=== PATIENT | male | born 1985 | race Caucasian/White ===

== ENCOUNTER 2023-05-12 08:17 | Outpatient (AMB) | payer BC, SELFPAY ==
[2023-05-12 08:48] VITALS: BP 132/80; PULSE 94; TEMP 38.2; O2SAT 98; BMI 29.0
--- NOTE | 2023-05-12 08:48 | AM.OFFWIN_ITS ---
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 He reports that he started with body aches for about 1 week, followed by a GI virus which caused diarrhea for 4 days. These have since resolved, however he awoke today with very sore throat. Denies known exposure to sick contacts. [facility], [facility] Social History Patient Tobacco Use Status: Current everyday Tobacco user Review of Systems Const All systems reviewed & are unremarkable except as noted in HPI and below Physical Exam Const General: cooperative and no acute distress HEENT Head: Yes normal to inspection Ears: hearing grossly normal bilaterally General nose exam: Normal external nose present and Normal nasal mucous membranes and turbinates present Mouth: Normal oral and palatal mucosa present Throat: Yes posterior oropharynx abnormal (erythematous, exudute) and Yes tonsils absent Neck Neck: Yes no lymphadenopathy Resp Effort & Inspection: normal respiratory effort and able to speak in complete sentences Auscultation: clear to auscultation bilaterally Cardio Palpation: normal PMI Rate: regular rate Rhythm: regular rhythm Skin General skin exam: no rashes or lesions noted Extrem General: Yes capillary refill normal and Yes no clubbing, cyanosis or edema Psych Appearance: grossly normal Mental Status: mental status grossly normal Speech and movement: Normal speech and movement present Results AMB Rapid Strep AMB Rapid Strep Positive Last Edit by Danielito Mccormick CMA on 05/12/23 09 :05 Assessment & Plan Assessment & Plan (1) Streptococcal pharyngitis: Code(s): J02.0 - Streptococcal pharyngitis Plan: Rapid strep positive. Will treat with PCN V x10 days. Reviewed indications, use, possible s/e. Advised warm/salt water gargles and otc lozenges and Tylenol prn any ongoing throat discomfort. If he does not improve with treatment he should return to the clinic for further evaluation. He verbalizes understanding and agrees to plan. Work note provided. Orders: Orders AMB Rapid Strep Screen Today Z13.9 - Encounter for screening, unspecified Medications: New penicillin V potassium 500 mg PO TID 30 tabs 0RF 10 days J02.0 - Streptococcal pharyngitis Coding Level of Care Code Est Pt Level 3 (29644) Diagnoses Streptococcal pharyngitis J02.0
== END 2023-05-12 09:20 | disposition home or self-care (01) ==
PROVIDERS: Visit Provider Nurse Practitioner Family
DX: J02.0 Streptococcal pharyngitis (principal); J02.9 Acute pharyngitis, unspecified
CPT/HCPCS: 87880; 99213

== ENCOUNTER 2023-06-04 09:02 | Outpatient (AMB) | payer BC, SELFPAY ==
[2023-06-04 09:02] VITALS: BP 130/80; PULSE 80; TEMP 36.1; O2SAT 97; BMI 28.0
--- NOTE | 2023-06-04 09:02 | AM.OFFWIN_ITS ---
Intake Vital Signs 06/04/23 09:02 Height 5 ft 10 in Weight 88.451 kg BMI 28.0 BP 130/80 Blood Pressure Location Lt brachial Position Sitting Pulse 80 Pulse Source Pulse Oximeter Temp 97.0 F Temp Source Temporal Artery Scan Pulse Oximetry (%) 97 Oxygen Delivery Method Room Air Intake Visit Reasons: EP Fever, Chills [phone] Intake Note: pt is here today for fever chills started 05/03 Patient Tobacco Use Status: Current everyday Tobacco user Allergies No Known Allergies Allergy (Verified 06/04/23 09:02) Do you need a note to return to daycare/school/sports/work: Yes HPI HPI Comments History of Present Illness Details 928 38-year-old male not regularly followed by primary care provider history of obesity presenting to the clinic for evaluation of fatigue, malaise, myalgias, chills, diarrhea, subjective fevers ongoing since the end of April. Patient reports at the end of April he had some sort of virus, he got better, few days later he got sick again, he reports this past week he has been having chills, nausea, diarrhea (a few bowel movements per day, loose however not completely watery.) He reports he just has not been feeling right and he feels like everything goes right through him. Has not seen a PCP or specialist for this. Denies chest pain, shortness of breath, headache, vision changes, dizziness. No recent travel not currently on antibiotics Physical examination benign Likely IBS versus viral illness versus gastroenteritis. Unlikely Clostridium difficile, bacterial diarrhea. Will rule out metabolic derangements. Advised him to follow-up with PCP and will likely require Gastroenterology follow-up. Educated patient on diagnosis and treatment plan, answered all question, patient verbalizes understanding. At this time patient will be discharged home, advised to return with new or worsening symptoms. Educated on worrisome signs and symptoms and when to return. At this time I feel comfortable discharge home. [facility] Social History Patient Tobacco Use Status: Current everyday Tobacco user Review of Systems Const All systems reviewed & are unremarkable except as noted in HPI and below Physical Exam Vital Signs: Last Vital Signs Temp 97.0 F 06/04/23 09:02 Pulse 80 06/04/23 09:02 BP 130/80 06/04/23 09:02 Pulse Ox 97 06/04/23 09:02 Oxygen Delivery Method Room Air 06/04/23 09:02 BMI result Body Mass Index 28.0 Vital signs stable Appearance: Alert.? Oriented X3.? No acute distress.? Head: Normocephalic, atraumatic, no step-offs or deformities Eyes: Pupils equal, round and reactive to light.? ENT: Pharynx normal.? Neck: Normal inspection.? Neck supple.? No meningeal signs. CVS: Normal heart rate and rhythm.? Pulses normal.? Respiratory: No respiratory distress.? Breath sounds normal.? Abdomen: Soft and nontender.? Negative Shea's, Rovsing and McBurney's Skin: Skin warm and dry.? Normal skin color.? Normal skin turgor.? Extremities: No lower extremity edema.? No calf ttp. 5/5 strength to bilateral upper and lower extremities Neuro: Oriented X 3.? No motor deficit.? No sensory deficit. CN 2-12 intact Assessment & Plan Assessment & Plan (1) Viral illness: Code(s): B34.9 - Viral infection, unspecified (2) Nausea & vomiting: Code(s): R11.2 - Nausea with vomiting, unspecified (3) Diarrhea: Code(s): R19.7 - Diarrhea, unspecified Plan Take your medications as prescribed. If you were prescribed antibiotics today, it is important that you take your medication to their entirety, do not skip any doses, do not finish them early. Follow-up with your primary care provider this week. Return to the emergency department with new or worsening symptoms. Such as fevers, chills, chest pain, shortness of breath, nausea, vomiting, dizziness, headache, vision changes, lethargy In case of emergency call 911 Orders: Orders Complete Blood Count Auto Diff Today B34.9 - Viral infection, unspecified, R11.2 - Nausea with vomiting, unspecified Comprehensive Met. Panel Today B34.9 - Viral infection, unspecified, R11.2 - Nausea with vomiting, unspecified, R19.7 - Diarrhea, unspecified Lipase Today B34.9 - Viral infection, unspecified, R11.2 - Nausea with vomiting, unspecified, R19.7 - Diarrhea, unspecified Coding Level of Care Code Est Pt Level 3 (25739) Diagnoses Viral illness B34.9 Nausea & vomiting R11.2 Diarrhea R19.7
== END 2023-06-04 09:35 | disposition home or self-care (01) ==
PROVIDERS: Visit Provider Physician Assistant
DX: B34.9 Viral infection, unspecified (principal); R11.2 Nausea with vomiting, unspecified; R19.7 Diarrhea, unspecified
CPT/HCPCS: 99213

== ENCOUNTER 2023-06-04 09:23 | Outpatient (REF) | payer BC, SELFPAY ==
[2023-06-04 11:42] LABS: MANUAL DIFF FLAG NO
[2023-06-04 11:56] LABS: Basophils Percent Auto 0.2 % (0-2); Eosinophils Percent Auto 0.2 % (0-4); Hematocrit 48.4 % (42.0-52.0); Hemoglobin 15.8 g/dl (14.0-18.0); Imm Gran Abs Auto 0.01 X10*3/uL (0.00-0.03); Imm Gran Pct Auto 0.2 % (0.0-0.4); Lymphocytes Absolute Auto 1.1 X10*3/uL (1.2-4.9); Lymphocytes Percent Auto 22.2 % (20-40); Mean Corpuscular HGB Conc 32.6 g/dl (31.0-36.0); Mean Platelet Volume 9.4 fL (9.4-12.4); Monocytes Absolute Auto 0.8 X10*3/uL (0.1-1.2); Monocytes Percent Auto 16.6 % (2-11); Neutrophils Absolute Auto 2.9 x10*3/uL (2.0-8.3); Neutrophils Percent Auto 60.6 % (45-73); Platelet Count 277 X10*3/uL (160-400); Red Blood Count 5.44 X10*6/uL (4.60-5.80); White Blood Count 4.8 X10*3/uL (4.8-10.8)
[2023-06-04 12:30] LABS: Alanine Aminotransferase 28 U/L (0-40); Albumin Level 4.4 g/dL (3.5-5.0); Alkaline Phosphatase 62 U/L (39-117); Anion Gap 16 (12-20); Aspartate Amino Transferase 24 U/L (5-37); Bilirubin Total 0.4 mg/dL (0.0-1.0); Blood Urea Nitrogen 8 mg/dL (9-16); Calcium 9.4 mg/dL (8.4-10.2); Carbon Dioxide 29 mmol/L (22-29); Chloride 98 mmol/L (96-108); Estimated Glomerular Filt Rate > 60; Glucose Random 87 mg/dL (60-115); Lipase 20 U/L (8-78); Potassium 4.1 mmol/L (3.3-5.1); Sodium 139 mmol/L (135-145); Total Protein 7.5 g/dL (6.5-8.0)
== END 2023-06-04 09:24 | disposition home or self-care (01) ==
LOC: HO.HMGCLDS 09:23
PROVIDERS: Visit Provider Physician Assistant
DX: B34.9 Viral infection, unspecified (principal); R19.7 Diarrhea, unspecified; R11.2 Nausea with vomiting, unspecified
CPT/HCPCS: 36415; 80053; 83690; 85025

== ENCOUNTER 2023-07-05 10:52 | Outpatient (AMB) | payer BC, SELFPAY ==
[2023-07-05 10:58] VITALS: BP 122/74; PULSE 62; O2SAT 98; BMI 28.6
--- NOTE | 2023-07-05 10:58 | MHC.PC.OV ---
Vital Signs 07/05/23 10:58 Height 5 ft 10 in Weight 199 lb BMI 28.6 BP 122/74 Blood Pressure Location Lt brachial Position Sitting Pulse 62 Pulse Source Pulse Oximeter Pulse Oximetry (%) 98 Oxygen Delivery Method Room Air Intake Visit Reasons: Annual PE Intake Note: Pt is here to est care Allergies No Known Allergies Allergy (Verified 07/05/23 11:14) Medication List - Last Reconciled 07/05/23 by ROLAN Stauffer prednisone 2 mg PO DAILY Tobacco use date assessed: 07/05/23 Dental Screening Dental Screen Date: 07/05/23 Did you have a dental visit in the last 12 months?: Yes Did you have a dental problem in the last 6 months where you did not have access to dental care?: No Was dental information given to patient?: Patient has dentist HPI HPI Comments History of Present Illness Details The patient is a 38-year-old male here to establish care. He was seen in the walk-in clinic 1 month prior with GI symptoms of diarrhea, bloating, stomach pain. He has not seen a PCP in several years. Patient states that his GI symptoms have diminished. He states he is currently on a prednisone taper due to his left back more being pulled 2 days prior to this appointment. Denies recent fever, nausea, vomiting, chest pain, shortness a breath, or numbness. [facility] Medical History (Updated 07/05/23 @ 11:37 by ROLAN Stauffer) Horseshoe kidney Surgical History (Updated 07/05/23 @ 11:17 by ROLAN Stauffer) History of tonsillectomy Family History Father Substance use disorder Social History Housing: House Patient Tobacco Use Status: Former Tobacco user e-Cigarette/Vaping Use: Currently Using Second Hand Smoke Exposure: No service: No Current occupational status: employed Current occupation: [employer] Current occupational exposures/hazards: No Cognitive needs: No Hearing needs: No Vision needs: No Questionnaire PHQ-9 Over the last 2 weeks, how often have you been bothered by any of the following problems? 1. Little interest or pleasure in doing things: not at all 2. Feeling down, depressed, or hopeless: not at all 3. Trouble falling or staying asleep, or sleeping too much: not at all 4. Feeling tired or having little energy: more than half the days 5. Poor appetite or overeating: not at all 6. Feeling bad about yourself - or that you are a failure or have let yourself or your family down: not at all 7. Trouble concentrating on things, such as reading the newspaper or watching television: not at all 8. Moving or speaking so slowly that other people could have noticed. Or the opposite - being so fidgety or restless that you have been moving around a lot more than usual: not at all 9. Thoughts that you would be better off or of hurting yourself in some way: not at all Total score: 2 Depression Screening Interpretation: Negative Depression Screening Done: Yes 12040 - PHQ-9 Billing: Yes Source: Developed by Drs. Jay Perdue, Maryuri Patrick, Alvarez Arita and colleagues, with an educational dorota from [employer]. Thrive Questionnaire Date Thrive assessed: 07/05/23 I am a: Patient What is your living situation today?: I have a steady place to live Within the past 12 months, did the food you bought not last and you didn't have the money to get more?: Never true Within the past 12 months, did you worry whether your food would run out before you got money to buy more?: Never true Do you have trouble paying for medicines?: No Do you have trouble getting transportation to medical appointments?: No Do you have trouble paying your heating and electricity bill?: No Do you have trouble taking care of your child, family member or friend?: No Do you have trouble with day-to-day activities such as bathing, preparing meals, shopping, managing finances, etc.?: No Are you currently unemployed and looking for a job?: No Are you interested in more education?: No THRIVE Score: 0 AUDIT C Alcohol Use Questionnaire (AUDIT-C) 1. How often do you have a drink containing alcohol?: Monthly or less 2. How many drinks containing alcohol do you have on a typical day when you are drinking?: 1 or 2 3. How often do you have six or more drinks on one occasion?: Never Total Score: 1 ELIECER-7 AMB Questionnaire ELIECER-7 Date ELIECER - 7 assessed: 07/05/23 Feeling nervous, anxious, or on edge: 0 = Not at all Not being able to stop or control worryin = Not at all Worrying too much about different things: 0 = Not at all Trouble relaxin = Not at all Being so restless that it is hard to sit still: 0 = Not at all Becoming easily annoyed or irritable: 1 = Several days Feeling afraid as if something awful might happen: 0 = Not at all Total ELIECER-7 score (0-4 normal; 5-9 mild; 10-14 moderate; 15-21 severe): 1 Source: Developed by Drs. Jay Perdue, Maryuri Patrick, Alvarez Arita and colleagues, with an educational dorota from [employer]. ELIEECR-7 Assessment Billing ELIECER-7 Assessment Tool: ELIECER-7 Assessment 40965 Review of Systems Const Details: Constitutional : No Weight loss, No Fever, No Chills, No Fatigue, No Malaise ENT/Mouth : No sore throat, No Rhinorrhea, Admits ear fullness. Eyes: No Eye Pain, No Swelling, No Redness Cardiovascular : No Chest Pain, No SOB, No Dyspnea on Exertion, No Orthopnea, No Edema, No Palpitations Respiratory : No Cough, No Sputum, No Wheezing Gastrointestinal : No Nausea, No Vomiting, No Diarrhea, No Constipation, No abdominal Pain, No Hematochezia, No Melena Musculoskeletal : Admits limited flexion and extension of left thumb. Skin : No Skin Lesions, No rash Neuro : No Weakness, No Numbness, No Dizziness, No Headache Psych : No Anxiety/Panic, No Depression All other systems reviewed and are negative Physical exam (Primary Care) Vital Signs: Last Vital Signs Pulse 62 07/05/23 10:58 BP 122/74 07/05/23 10:58 Pulse Ox 98 07/05/23 10:58 Oxygen Delivery Method Room Air 07/05/23 10:58 BMI result Body Mass Index 28.6 Tobacco/Smoking Status: Tobacco use Status Tobacco use date assessed 07/05/23 07/05/23 11:03 Patient Tobacco Use Status Former Tobacco user 07/05/23 11:03 e-Cigarette/Vaping Use Currently Using 07/05/23 11:03 Depression Screening Interpretation: Negative Const Other: Appearance: Alert.? Oriented X3.? No acute distress.? Head: Normocephalic, atraumatic, no step-offs or deformities Eyes: Pupils equal, round and reactive to light.? ENT: TM intact, effusion and erythema bilaterally. Neck: Normal inspection.? Neck supple.? CVS: Normal heart rate and rhythm.? Pulses normal.? Respiratory: No respiratory distress.? Breath sounds normal.? Extremities: Patient unable to full extend and flex left thumb. No obvious deformity. Patient denies trauma to the area. Neuro: Oriented X 3.? No motor deficit.? No sensory deficit. CN 2-12 intact Assessment and Plan Assessment & Plan (1) Thumb pain: Comment: Patient states that he has little pain in his left thumb but has limited range of motion to flexion and extension. Denies any trauma to the area, denies recent injury. Will obtain x-ray. Code(s): M79.646 - Pain in unspecified finger(s) Qualifiers: Laterality: left Qualified Code(s): M79.645 - Pain in left finger(s) (2) Otitis media: Comment: Patient has bilateral otitis media. Will prescribe Augmentin to be taken as directed Code(s): H66.90 - Otitis media, unspecified, unspecified ear Qualifiers: Otitis media type: unspecified Chronicity: acute Qualified Code(s): H66.90 - Otitis media, unspecified, unspecified ear Plan: Take your medications as prescribed. If you were prescribed antibiotics today, it is important that you take your medication to their entirety, do not skip any doses, do not finish them early. Follow-up with your primary care provider this week. Return to the emergency department with new or worsening symptoms. Such as fevers, chills, chest pain, shortness of breath, nausea, vomiting, dizziness, headache, vision changes, lethargy In case of emergency call 911 Plan Patient will follow-up with physical exam and 4 months Orders: Orders Comprehensive Met. Panel Today Z91.89 - Other specified personal risk factors, not elsewhere classified Erythrocyte Sedimentation Rate Today R10.9 - Unspecified abdominal pain Vitamin B12 Today Z13.21 - Encounter for screening for nutritional disorder UA CC w/rflx Micro + Cult Today Z13.89 - Encounter for screening for other disorder TSH reflex Free T4 Today Z13.29 - Encounter for screening for other suspected endocrine disorder XR hand wrist LT Today M79.646 - Pain in unspecified finger(s) Complete Blood Count Auto Diff Today Z13.0 - Encounter for screening for diseases of the blood and blood-forming organs and certain disorders involving the immune mechanism Amylase Today R14.0 - Abdominal distension (gaseous) Magnesium Today R10.9 - Unspecified abdominal pain Vitamin D 25-OH (D2 and D3) Today Z13.21 - Encounter for screening for nutritional disorder Vitamin B6 Today Z13.21 - Encounter for screening for nutritional disorder Medications: New amoxicillin-pot clavulanate 875-125 mg 1 tab PO Q12H 14 tabs 0RF Coding Level of Care Code Est Pt Level 3 (39361) Diagnoses Pain of left thumb M79.645 Laterality: left Acute otitis media, unspecified otitis media type H66.90 Otitis media type: unspecified Chronicity: acute Additional Codes ELIECER-7 Assessment Billing - ELIECER-7 Assessment Tool: ELIECER-7 Assessment 55304 ([id number]) Time Spent (min) 25
== END 2023-07-05 12:37 | disposition home or self-care (01) ==
PROVIDERS: Visit Provider Nurse Practitioner Primary Care
DX: M79.645 Pain in left finger(s) (principal); H66.93 Otitis media, unspecified, bilateral
CPT/HCPCS: 99214

== ENCOUNTER 2023-07-05 11:41 | Outpatient (REF) | payer BC, SELFPAY ==
--- NOTE | ~2023-07-05 | XR_ITS ---
EXAMINATION: XR HAND/WRIST, LEFT CLINICAL INFORMATION: Finger pain. COMPARISON: None TECHNIQUE: PA, lateral, and oblique views of the left hand and wrist. FINDINGS: The bones and soft tissues are normal. No fracture. Alignment is anatomic. There is a neutral ulnar variance. Joint spaces are maintained. A benign, simple cyst is incidentally noted of the metacarpal head, with sharp margins. Further tiny benign cysts are seen within the lunate. No erosions or soft tissue calcifications. XR/XR hand wrist LT IMPRESSION: Unremarkable radiographs of the hand and wrist.
[2023-07-05 13:34] LABS: Appearance Urine Clear; Color Urine Yellow; Glucose Urine UA Negative (Negative); Leukocyte Esterase Urine Negative (Negative); Nitrite Urine Negative (Negative); PH 7.5 (5.0-9.0); Specific Gravity - Urine <= 1.005 (1.005-1.025); Urine Blood Negative (Negative); Urine Ketones Negative (Negative); Urine Protein Negative (Neg-Trace)
[2023-07-05 13:35] LABS: MANUAL DIFF FLAG NO
[2023-07-05 13:36] LABS: Basophils Percent Auto 0.2 % (0-2); Eosinophils Percent Auto 0.1 % (0-4); Hematocrit 43.1 % (42.0-52.0); Imm Gran Abs Auto 0.06 X10*3/uL (0.00-0.03); Imm Gran Pct Auto 0.6 % (0.0-0.4); Lymphocytes Absolute Auto 1.3 X10*3/uL (1.2-4.9); Lymphocytes Percent Auto 12.4 % (20-40); Mean Corpuscular HGB Conc 32.5 g/dl (31.0-36.0); Mean Corpuscular Hemoglobin 28.9 pg (27.0-33.0); Mean Platelet Volume 9.1 fL (9.4-12.4); Monocytes Absolute Auto 0.6 X10*3/uL (0.1-1.2); Monocytes Percent Auto 5.8 % (2-11); Neutrophils Absolute Auto 8.4 x10*3/uL (2.0-8.3); Neutrophils Percent Auto 80.9 % (45-73); Platelet Count 287 X10*3/uL (160-400); Red Blood Count 4.84 X10*6/uL (4.60-5.80); Red Cell Distribution Width 13.5 % (11.0-16.0); White Blood Count 10.4 X10*3/uL (4.8-10.8)
[2023-07-05 14:16] LABS: Erythrocyte Sedimentation Rate 4 MM/HR (0-15)
[2023-07-05 14:48] LABS: Alanine Aminotransferase 28 U/L (0-40); Albumin Level 4.3 g/dL (3.5-5.0); Alkaline Phosphatase 63 U/L (39-117); Amylase 47 U/L (28-100); Anion Gap 11 (12-20); Aspartate Amino Transferase 17 U/L (5-37); Bilirubin Total 0.5 mg/dL (0.0-1.0); Blood Urea Nitrogen 8 mg/dL (9-16); Calcium 9.4 mg/dL (8.4-10.2); Carbon Dioxide 31 mmol/L (22-29); Chloride 102 mmol/L (96-108); Estimated Glomerular Filt Rate > 60; Glucose Random 87 mg/dL (60-115); Magnesium 2.1 mg/dL (1.6-2.6); Potassium 3.8 mmol/L (3.3-5.1); Sodium 140 mmol/L (135-145); Total Protein 7.3 g/dL (6.5-8.0)
[2023-07-05 15:03] LABS: TSH reflex Free T4 0.67 uIU/mL (0.32-4.0); Vitamin B12 813 pg/mL (200-900)
[2023-07-09 13:13] LABS: Vitamin D 25-OH, D2 <4 ng/mL; Vitamin D 25-OH, D3 21 ng/mL; Vitamin D 25-OH, Total 21 ng/mL (30-100)
[2023-07-10 14:58] LABS: Vitamin B6 32.2 ng/mL (2.1-21.7)
== END 2023-07-05 11:42 | disposition home or self-care (01) ==
LOC: HO.HMGCX 11:41
PROVIDERS: PCP Nurse Practitioner Primary Care; Visit Provider Nurse Practitioner Primary Care
DX: M79.642 Pain in left hand (principal); R10.9 Unspecified abdominal pain; Z91.89 Other specified personal risk factors, not elsewhere classified; Z13.21 Encounter for screening for nutritional disorder; Z13.0 Encounter for screening for diseases of the blood and blood-forming organs and certain disorders involving the immune mechanism; R14.0 Abdominal distension (gaseous); Z13.29 Encounter for screening for other suspected endocrine disorder; Z13.89 Encounter for screening for other disorder
CPT/HCPCS: 36415; 73110; 73130; 80053; 81003; 82150; 82306; 82607; 83735; 84207; 84443; 85025; 85652

== ENCOUNTER 2024-04-17 11:29 | Outpatient (AMB) | payer BC, SELFPAY ==
[2024-04-17 12:27] VITALS: BP 120/84; PULSE 75; O2SAT 98; BMI 29.3
--- NOTE | 2024-04-17 12:27 | MHC.OFFWIV ---
Intake Vital Signs 04/17/24 12:27 Height 5 ft 10 in Intake Visit Reasons: EP Pain in neck/shoulder [phone] Intake Note: Patient here for neck pain that started about 4 weeks ago. Patient Tobacco Use Status: Former Tobacco user Allergies No Known Allergies Allergy (Verified 04/17/24 12:45) Do you need a note to return to daycare/school/sports/work: Yes PFSH Medical History (Updated 07/05/23 @ 11:37 by ROLAN Stauffer) Horseshoe kidney Surgical History (Updated 07/05/23 @ 11:17 by ROLAN Stauffer) History of tonsillectomy Family History Father Substance use disorder Social History Housing: House Patient Tobacco Use Status: Former Tobacco user e-Cigarette/Vaping Use: Currently Using Second Hand Smoke Exposure: No service: No Current occupational status: employed Current occupation: [employer] Current occupational exposures/hazards: No Cognitive needs: No Hearing needs: No Vision needs: No Coding
--- NOTE | 2024-04-17 13:09 | MHC.OFFWIV ---
Intake Vital Signs 04/17/24 12:27 Height 5 ft 10 in Weight 204 lb BMI 29.3 BP 120/84 Blood Pressure Location Rt brachial Position Sitting Pulse 75 Pulse Source Pulse Oximeter Pulse Oximetry (%) 98 Oxygen Delivery Method Room Air Intake Visit Reasons: EP Pain in neck/shoulder [phone] Patient Tobacco Use Status: Former Tobacco user Allergies No Known Allergies Allergy (Verified 04/17/24 12:45) Do you need a note to return to daycare/school/sports/work: No HPI HPI Comments History of Present Illness Details Patient is a 39-year-old male complaining of acute on chronic left-sided shoulder and neck pain. Patient states he has a history of shoulder pain, had an MRI and was told to go to physical therapy. He states his pain has been fairly under control since then however more recently it has started up again. He tells me the last week or so, he has pain that extends from the base of his skull down to his left shoulder. He tells me he is right-handed and recently had a baby but he assures me he is not carrying the baby on the left side. He tells me he has been trying to find pillows that allow him to sleep in a comfortable position but has been unsuccessful. He tells me he does not like taking medication and has been using some ice and Salonpas patches with no relief in his symptoms. He tells me he has some slight numbness and tingling in his left arm. The pain is not worse with movement. He tells me he had a primary care doctor but that primary care doctor has since left the practice but he has not been assigned new one. [facility] Medical History (Updated 04/17/24 @ 13:32 by Haley Tolbert PA-C) Horseshoe kidney Surgical History (Updated 07/05/23 @ 11:17 by ROLAN Stauffer) History of tonsillectomy Family History Father Substance use disorder Social History Housing: House Patient Tobacco Use Status: Former Tobacco user e-Cigarette/Vaping Use: Currently Using Second Hand Smoke Exposure: No service: No Current occupational status: employed Current occupation: [employer] Current occupational exposures/hazards: No Cognitive needs: No Hearing needs: No Vision needs: No Review of Systems Const All systems reviewed & are unremarkable except as noted in HPI and below Physical Exam Vital Signs: Last Vital Signs Pulse 75 04/17/24 12:27 BP 120/84 04/17/24 12:27 Pulse Ox 98 04/17/24 12:27 Oxygen Delivery Method Room Air 04/17/24 12:27 BMI result Body Mass Index 29.3 Assessment & Plan Assessment & Plan (1) Neck pain on left side: Code(s): M54.2 - Cervicalgia Plan: Recommended around the clock Aleve for the next 2-3 days, also using Voltaren gel, ice and rest. Also sent muscle relaxer to pharmacy. No indication for x-ray Advised to set up an appointment with a new PCP to follow up if he has no improvement. As he has no PCP right now, told him it is okay for him to return to the [facility] In [facility] if his pain persists and we can send a referral to Orthopedics. (2) Left shoulder pain: Code(s): M25.512 - Pain in left shoulder Qualifiers: Chronicity: acute Qualified Code(s): M25.512 - Pain in left shoulder Plan: as above Medications: New cyclobenzaprine 5 mg PO Q8H PRN 15 tabs 0RF Muscle Spasm Coding Level of Care Code Est Pt Level 3 (49851) Diagnoses Neck pain on left side M54.2 Acute pain of left shoulder M25.512 Chronicity: acute
== END 2024-04-17 13:35 | disposition home or self-care (01) ==
PROVIDERS: Visit Provider Physician Assistant
DX: M54.2 Cervicalgia (principal); M25.512 Pain in left shoulder

== ENCOUNTER → 2024-04-17 11:29 | Outpatient (BNVA) | payer BC, SELFPAY | PROVIDERS: Visit Provider Physician Assistant ==

== ENCOUNTER 2024-08-17 07:58 | Outpatient (AMB) | payer BC, SELFPAY ==
[2024-08-17 08:20] VITALS: BP 128/84; PULSE 70; TEMP 36.8; O2SAT 98; BMI 28.7
--- NOTE | 2024-08-17 08:20 | MHC.OFFWIV ---
Intake Vital Signs 08/17/24 08:20 Height 5 ft 10 in Weight 200 lb BMI 28.7 BP 128/84 Blood Pressure Location Lt brachial Position Sitting Pulse 70 Pulse Source Pulse Oximeter Temp 98.2 F Temp Source Oral Pulse Oximetry (%) 98 Oxygen Delivery Method Room Air Intake Visit Reasons: EP Back pain, pulled muscle? Intake Note: Pt is here today for a walk in visit. Pt c/o middle back pain. Patient Tobacco Use Status: Former Tobacco user Allergies No Known Allergies Allergy (Verified 08/17/24 08:21) Do you need a note to return to daycare/school/sports/work: Yes HPI HPI Comments History of Present Illness Details 39 y/o male patient who presents to the walk in clinic with c/o Thoracic region Back pain since Yesterday. He lifted a Car sit yesterday, when he felt a Sharp pain on his right Thoracic region back. Denies CP, SOB or wheezing. PFSH Medical History (Updated 08/17/24 @ 08:42 by Briana Servin NP) Muscle strain Horseshoe kidney Surgical History (Updated 07/05/23 @ 11:17 by ROLAN Stauffer) History of tonsillectomy Family History Father Substance use disorder Social History Housing: House Patient Tobacco Use Status: Former Tobacco user e-Cigarette/Vaping Use: Currently Using Second Hand Smoke Exposure: No service: No Current occupational status: employed Current occupation: [employer] Current occupational exposures/hazards: No Cognitive needs: No Hearing needs: No Vision needs: No Review of Systems Const All systems reviewed & are unremarkable except as noted in HPI and below Physical Exam Vital Signs: Last Vital Signs Temp 98.2 F 08/17/24 08:20 Pulse 70 08/17/24 08:20 BP 128/84 08/17/24 08:20 Pulse Ox 98 08/17/24 08:20 Oxygen Delivery Method Room Air 08/17/24 08:20 BMI result Body Mass Index 28.7 Const General: no acute distress; No comfortable Nutritional Appearance: obese Orientation/consciousness: patient oriented x3 Resp Effort & Inspection: normal respiratory effort Auscultation: clear to auscultation bilaterally Cardio Heart sounds: S1 normal heart sound present and S2 normal heart sound present General: Yes no CVA tenderness Back/Spine/Pelvis Back: no CVA tenderness and back tenderness Thoracic/Lumbar Spine: pain with thoraco-lumbar ROM, paraspinal muscle tenderness and thoracic spinal tenderness at T9, at T10 and at T11 Skin General skin exam: no rashes or lesions noted Neuro General: patient oriented x3, gait normal and moves all extremities Psych Speech and movement: Normal speech and movement present Assessment & Plan Assessment & Plan (1) Muscle strain: Code(s): T14.8XXA - Other injury of unspecified body region, initial encounter Plan: Possibly Thoracic region Muscle Strain/Pull Ordered Muscle Relaxants Ice/Hot NSAIDs for pain relief. Medications: New cyclobenzaprine 10 mg PO BEDTIME 14 tabs 0RF T14.8XXA - Other injury of unspecified body region, initial encounter Coding Level of Care Code Est Pt Level 4 (93256) Diagnoses Muscle strain T14.8XXA Time Spent (min) 20
== END 2024-08-17 08:40 | disposition home or self-care (01) ==
PROVIDERS: Visit Provider Nurse Practitioner Family
DX: T14.8XXA Other injury of unspecified body region, initial encounter (principal)

== ENCOUNTER → 2024-08-17 07:58 | Outpatient (BNVA) | payer BC, SELFPAY | DX: Z13.89 Encounter for screening for other disorder (principal) ==